=== PATIENT | female | born 1945 | race Caucasian/White ===

== ENCOUNTER → 2018-01-11 | Outpatient (CLI) | payer OTHER ==
[~2018-01-11] MED LIST: ARMOUR THYROID180 M1 PO; ASPIRIN EC325 M1; BIOTIN1000 MCG PO; CIPRO500 MG PO; FLAGYL500 MG PO; FONDAPARIN2.5 MG/0.5; LEVOTHYROXINE 0.1 MG PO; LISINOPRIL20 MG PO; MELOXICAM15 MG PO; OXYCONTIN10 M1; OXYIR5 MG; PRINIVIL20 MG PO; VICODIN 5-5001 EACH PO; [UNRECOGNIZED DRUG - REMARK]
== END ==
LOC: M.RAD 13:10
DX: N91.2 Amenorrhea, unspecified (principal); Z78.0 Asymptomatic menopausal state

== ENCOUNTER → 2019-06-29 | Outpatient (CLI) | payer OTHER | LOC: M.RAD 09:36 | DX: Z12.31 Encounter for screening mammogram for malignant neoplasm of breast (principal) ==

== ENCOUNTER → 2020-12-24 | Outpatient (CLI) | payer MEDICARE | LOC: M.RAD 10-29 09:34 | PROVIDERS: ATTEND Nurse Practitioner Family | DX: Z12.31 Encounter for screening mammogram for malignant neoplasm of breast (principal); M89.49 Other hypertrophic osteoarthropathy, multiple sites; M85.852 Other specified disorders of bone density and structure, left thigh; M85.851 Other specified disorders of bone density and structure, right thigh; M85.88 Other specified disorders of bone density and structure, other site ==